=== PATIENT | male | born 1955 | race Caucasian/White ===

== ENCOUNTER 2023-07-21 14:09 | Emergency (ER) | payer MEDICARE, OTHER, SELFPAY ==
[2023-07-21 14:16] VITALS: BP 158/79
[2023-07-21 14:31] VITALS: BMI 35.2
--- NOTE | 2023-07-21 15:05 | ED.CVA ---
History of Present Illness
General
Chief Complaint: CVA/TIA Symptoms
Source: patient
Time Seen by Provider: 07/21/23 14:33
Onset of Stroke Symptoms
Onset of symptoms known: Yes
Date of onset of symptoms: 07/20/23
Time pt last seen normal is known: No
Travel History
Have you had any contact with someone who has COVID-19?: No
Do you have any symptoms of coronavirus? Fever > 100 degrees, chills, cough, shortness of breath, sore throat, loss of taste or smell, muscle aches, or headache?: No
History of Present Illness
History of Present Illness:
67-year-old male with past medical history of hyperlipidemia, previous Luque's palsy presenting to the emergency department for evaluation after he noticed yesterday morning he had pain in the right auricular area and loss of taste, this morning woke
up and had a right-sided facial droop and felt as if he could not fully close his right eye. Patient states felt similar to previous episode of Luque's palsy, contacted his primary care physician but was directed to the emergency department for
further evaluation. Patient states the preauricular pain is improved although still somewhat present. He denies any headaches, visual disturbances, focal weakness or numbness, chest pain, shortness of breath or any other concerns.
Past History
Past History
ED Past Medical History: Hypercholesterolemia
ED Past Surgical History: Orthopedic
Social History
Tobacco: Former smoker
Alcohol: None
Drug: None
Personal:
Living: with family
Review of Systems
Review of Systems
All Other Systems: ROS reviewed and negative except as documented in HPI and ROS
Phy Exam
Physical Exam
Physical Exam:
GENERAL: Alert , in no apparent distress
EYE: pupils equal and reactive, 3 mm bilateral, EOMI, no entrapment
NECK: Supple
ENT: o/p clr, mmm.
CARDIAC: Regular rate and rhythm, systolic murmur at the right second intercostal space.
LUNGS: Clear breath sounds bilaterally, no acute respiratory distress, no wheezes/rales/rhonchi
NEUROLOGICAL: Alert and oriented, right-sided facial droop noted, inability to raise the right eyebrow or close right eye fully, no dysarthria or dysmetria, no ataxia, moves all extremities, no sensory deficits
SKIN: Warm and dry, skin intact.
MUSCULOSKELETAL: well perfused.
PSYCH: Normal and appropriate interaction.
Scores
NIH Stroke Score
Level of Consciousness: 0 - Alert
LOC Questions: 0-Answers both correctly
LOC Commands: 0-Performs both correctly
Best Horizontal Gaze: 0-Normal
Visual Martinez: 0=Normal, no visual loss
Facial Palsy: 2=Partial paralysis
Motor - Right Arm: 0=No drift 10 seconds
Motor - Left Arm: 0=No drift 10 seconds
Motor - Right Le-No drift 5 seconds
Motor - Left Le-No drift 5 seconds
Limb Ataxia: 0-Absent
Sensation: 0-Normal
Best Language: 0-No aphasia
Dysarthria: 0-Normal
Extinction and Inattention: 0-No abnormality
Total Score:: 2
Heart Failure Risk
Heart Failure Risk Score: Not Applicable
Heart Score for Chest Pain Patients
STEMI patient?: Not applicable
Withdrawal Assessment of Alcohol
Withdrawal Assessment Completed?: Not applicable
Course
Orders/Labs/Results
Orders:
Orders
07/21/23 14:43
CT Head W/o Iv Contrast Urgent
Comment:
Reason For Exam: right sided facial droop, suspected bells palsy
07/21/23 16:24
Electrocardiogram (*1) Urgent
Reason for Study: TIA/Stroke
EKG- Treatment ONCE
07/21/23 16:56
Complete Blood Count/With Diff Urgent
Comprehensive Metabolic Panel Urgent
Abnormal Lab Results
07/21/23
16:56
MCH 32.2 H pg
(27.0-31.0)
MPV 11.1 H fL
(7.4-10.4)
Absolute Monos (auto) 0.7 H 10^3/uL
(0.1-0.6)
Lymphocytes % 17.7 L %
(20.5-51.1)
AST 67 H U/L
(17-59)
ALT 79 H U/L
(0-50)
Total Protein 8.4 H g/dl
(6.3-8.2)
07/21/23 16:56
07/21/23 16:56
Vital Signs
Initial and Last Documented VS:
Initial Vital Signs
Temp Pulse Resp BP Pulse Ox
98.1 F 76 18 158/79 96
07/21/23 14:16 07/21/23 14:16 07/21/23 14:16 07/21/23 14:16 07/21/23 14:16
Last Documented Vital Signs
Temp Pulse Resp BP Pulse Ox
98.1 F 76 18 159/72 96
07/21/23 14:16 07/21/23 14:16 07/21/23 14:16 07/21/23 17:28 07/21/23 14:16
Managing Director Atlas consulted with Physician
Managing Director Atlas consulted with physician?: Yes
Name of Physician Consulted: Gwyn
MDM/Problems Addressed
Differential Diagnosis Includes:
Luque's palsy, less concern for CVA, less concern for intracranial bleeding
MDM/Problems Addressed:
67-year-old male presenting emergency department at request of primary care physician for evaluation of right-sided deficits that seem to be most consistent with a Luque's palsy. Patient with history of Luque's palsy in the past. No rashes or
symptoms consistent with Lyme's as cause of Luque's palsy. I am ordering a head CT as the upper facial symptoms seem to be a little bit less noticeable than the facial droop however I am still less suspicious for an acute CVA. Anticipate starting
patient on prednisone and outpatient follow-up.
*Radiology
Radiology exam reviewed: radiology read reviewed
*Pulse Oximetry
Patient hypoxic: no
*EKG
Interpreted by ED Provider?: Yes
Comparison EKG: no changes
Heart Rate: 63
Rate: normal
Rhythm: sinus
[place]: normal axis
Ischemia: no ischemia
*Critical Care Note
Total Time (30-74mins, 75-104mins- exclusive of procedures): Not Applicable
Patient Management
Discussion with other providers: PCP
Escalation/DeEscalation of care consider admission/obs:
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 I discussed these findings with patient and who are unaware of any previous
history of CVA/TIA or any intracranial complications. Patient notes he is compliant with his antihypertensive medication, is not on any antiplatelet medication and developed neuropathy and myalgia from when he was on a statin so is currently not
taking any medications for cholesterol. I contacted the patient's primary care physician and made them aware of these findings and that we would be adding on some lab work as well as an EKG but that patient would need continued outpatient
management with a likely MRI and carotid ultrasound as well as medications adjustments as needed. Primary care physician will reach out to the patient and help schedule follow-up visits. In the meantime I added on a CBC, CMP and EKG. I still
anticipate discharge home.
Patient's labs largely unremarkable. There is a mild transaminitis. Possibly related to his previous statin use. At this time no indication for further emergent workup. Patient is otherwise stable for discharge home and outpatient management.
Aware of return precautions. Patient was provided with a printout copy of his CT scan report.
ED Attending Note
-
Portions of this chart may have been created with voice recognition software.� Occasional wrong word or��sound alike� substitutions may have occurred due to the inherent limitations of voice recognition software.
Discharge Plan
Departure
Patient Disposition: Home (Routine Discharge)
Date of Disposition: 07/21/23
Time of Disposition: 17:20
Patient with high blood pressure during this ER visit?: Yes
Discharge Problem:
Luque's palsy
Instructions: Luque's Palsy (DC)
Prescriptions:
New
prednisone 20 mg tablet
60 mg PO DAILY 7 Days Qty: 21 0RF
aspirin 81 mg tablet,delayed release (DR/EC)
81 mg PO DAILY Qty: 30 0RF
famotidine [Pepcid] 20 mg tablet
20 mg PO DAILY Qty: 30 0RF
No Action
ascorbic acid (vitamin C) [Vitamin C] 1,000 mg Tablet
1,000 mg PO DAILY
fexofenadine [Milvia] 180 mg Tablet
180 mg PO HS
losartan 25 mg Tablet
25 mg PO HS
lysine [L-Lysine] 500 mg Tablet
500 mg PO DAILY
saw palmetto 320 mg Capsule
320 mg PO DAILY
Visbiome 112.5 billion cell Capsule
1 cap PO DAILY
cholecalciferol (vitamin D3) 50 mcg (2,000 unit) Tablet
50 mcg PO DAILY
vitamin E (dl, acetate) 180 mg (400 unit) Capsule
180 mg PO DAILY
IBgard 90 mg Capsule,Delayed,Extend.Release
180 mg PO DAILY
cyanocobalamin (vitamin B-12) 2,500 mcg Tablet
2,500 mcg PO DAILY
Citracal
650 mg PO DAILY
CoQ-10
300 mg PO DAILY
Glucosamine Chondroitin
1 tab PO DAILY
Patient Comments:
07/21/2023, 1500 mg Glusocamine - 200 mg Chondroitin.
Gluten
1 tab PO DAILY
[place]-3 Krill Oil
750 mg PO DAILY
Referrals:
Harvey Vaughn MD [Active] - (Neurology - Call for appointment)
Suzanna Velazquez PA-C [Family Provider] -
Interventions
Interventions:
*Risk Screen - Suicide Last Done: 07/21/23 14:31
*General Assessment Last Done: 07/21/23 14:31
*Neglect/Abuse Screening Last Done: 07/21/23 14:31
*Nursing Disposition Last Done: 07/21/23 17:28
ED- Pulmonary Assessment Last Done: 07/21/23 14:31
ED- Neurological Assessment Last Done: 07/21/23 14:31
ED- Cardiac Assessment Last Done: 07/21/23 14:31
[2023-07-21 17:11] LABS: % Basophils 0.4 % (0-2); % Eosinophils 0.6 % (0-6); % Immature Granulocytes 0.3 % (0-0.5); % Lymphocytes 17.7 % (20.5-51.1); % Monocytes 8.4 % (1.7-9.3); % Neutrophils 72.6 % (42.2-75.2); Absolute Eosinophils 0.1 10^3/uL (0-0.7); Absolute Lymphocytes 1.4 10^3/uL (1.2-3.4); Absolute Monocytes 0.7 10^3/uL (0.1-0.6); Absolute Neutrophils 5.7 10^3/uL (1.4-6.5); Hematocrit 46.5 % (39.0-52.0); Hemoglobin 16.5 g/dL (13.0-18.0); Mean Corp Hgb Conc. 35.5 g/dL (33.0-37.0); Mean Corpuscular Hgb 32.2 pg (27.0-31.0); Mean Corpuscular Volume 90.8 fL (80.0-94.0); Mean Platelet Volume 11.1 fL (7.4-10.4); Nucleated Red Blood Cells % 0 % (-); Platelet Count 139 10^3/uL (130-400); Red Blood Cell Count 5.12 10^6/uL (4.70-6.10); Red Cell Dist. Width 12.3 % (11.5-14.5); White Blood Cell Count 7.9 10^3/uL (4.8-10.8)
[2023-07-21 17:19] LABS: ALT (SGPT) 79 U/L (0-50); AST (SGOT) 67 U/L (17-59); Albumin 4.6 g/dl (3.5-5.0); Alkaline Phosphatase 108 U/L (38-126); Blood Urea Nitrogen 14 mg/dl (9-20); Calcium 9.6 mg/dl (8.4-10.2); Carbon Dioxide 23 mmol/L (22-30); Chloride 105 mmol/L (98-107); Estimated Creatinine Clearance 96 ml/min; Glucose 94 mg/dl (70-99); Potassium 4.5 mmol/L (3.5-5.1); Sodium 135 mmol/L (135-145); Total Bilirubin 0.8 mg/dl (0.2-1.3); Total Protein 8.4 g/dl (6.3-8.2); eGFR > 60.00
[2023-07-21 17:28] VITALS: BP 159/72
== END 2023-07-21 17:31 | disposition home or self-care (01) ==
LOC: EMR 14:09
PROVIDERS: Physician Assistant Medical; EMERGENCY PHYSICIAN Student in an Organized Health Care Education/Training Program; FAMILY PHYSICIAN Physician Assistant Medical
DX: G51.0 Bell's palsy (principal); R03.0 Elevated blood-pressure reading, without diagnosis of hypertension; E78.00 Pure hypercholesterolemia, unspecified; Z87.891 Personal history of nicotine dependence; Z79.82 Long term (current) use of aspirin; Z88.1 Allergy status to other antibiotic agents
CPT/HCPCS: 99284; 70450; 80053; 85025; 93005

== ENCOUNTER → 2023-09-11 08:37 | Outpatient (REF) | payer MEDICARE, OTHER, SELFPAY | LOC: RAD 08:37 | PROVIDERS: ATTENDING PHYSICIAN Internal Medicine Cardiovascular Disease; FAMILY PHYSICIAN Physician Assistant Medical | DX: I63.9 Cerebral infarction, unspecified (principal); I63.89 Other cerebral infarction; I10 Essential (primary) hypertension; Z86.73 Personal history of transient ischemic attack (TIA), and cerebral infarction without residual deficits; I65.29 Occlusion and stenosis of unspecified carotid artery | CPT/HCPCS: 93880 ==

== ENCOUNTER → 2023-09-26 07:09 | Outpatient (REF) | payer MEDICARE, OTHER, SELFPAY ==
--- NOTE | 2023-09-26 08:38 | PTCARENOTE ---
#22 dagoberto placed left hand for bubble study. INT removed after study completed. dsg applied and pressure held, no bleeding noted.
[2023-09-26 10:15] LABS: ALT (SGPT) 54 U/L (0-50); AST (SGOT) 57 U/L (17-59); Albumin 4.7 g/dl (3.5-5.0); Alkaline Phosphatase 80 U/L (38-126); Direct Bilirubin 0.2 mg/dl (0.0-0.4); Total Bilirubin 0.8 mg/dl (0.2-1.3); Total Protein 7.9 g/dl (6.3-8.2)
[2023-09-26 10:43] LABS: TSH 3.04 uIU/ml (0.47-4.68)
[2023-09-29 16:17] LABS: Lyme Antibody Screen, EIA Negative (Negative)
== END ==
LOC: RCS 07:09
PROVIDERS: ATTENDING PHYSICIAN Internal Medicine Cardiovascular Disease; FAMILY PHYSICIAN Physician Assistant Medical
DX: I10 Essential (primary) hypertension (principal); Z86.73 Personal history of transient ischemic attack (TIA), and cerebral infarction without residual deficits; I63.9 Cerebral infarction, unspecified; R25.1 Tremor, unspecified; G51.0 Bell's palsy
CPT/HCPCS: 36415; 80076; 82565; 84443; 86618; 93306

== ENCOUNTER → 2023-10-06 13:11 | Outpatient (REF) | payer MEDICARE, OTHER, SELFPAY | LOC: RAD 13:11 | PROVIDERS: ATTENDING PHYSICIAN Psychiatry & Neurology Neurology; FAMILY PHYSICIAN Physician Assistant Medical; OTHER PHYSICIAN Internal Medicine Cardiovascular Disease; OTHER PHYSICIAN Surgery Vascular Surgery | DX: I63.9 Cerebral infarction, unspecified (principal) | CPT/HCPCS: 70496; 70498; Q9967 ==

== ENCOUNTER 2023-10-28 05:52 | Inpatient (IN) | payer MEDICARE, OTHER, SELFPAY ==
[2023-10-23 09:23] VITALS: BMI 34.2
[2023-10-23 10:10] LABS: % Basophils 0.3 % (0-2); % Eosinophils 1.9 % (0-6); % Immature Granulocytes 0.3 % (0-0.5); % Lymphocytes 19.4 % (20.5-51.1); % Monocytes 7.3 % (1.7-9.3); % Neutrophils 70.8 % (42.2-75.2); Absolute Eosinophils 0.1 10^3/uL (0-0.7); Absolute Lymphocytes 1.1 10^3/uL (1.2-3.4); Absolute Monocytes 0.4 10^3/uL (0.1-0.6); Absolute Neutrophils 4.1 10^3/uL (1.4-6.5); Hematocrit 43.3 % (39.0-52.0); Hemoglobin 15.2 g/dL (13.0-18.0); Mean Corp Hgb Conc. 35.1 g/dL (33.0-37.0); Mean Corpuscular Hgb 32.1 pg (27.0-31.0); Mean Corpuscular Volume 91.4 fL (80.0-94.0); Mean Platelet Volume 10.8 fL (7.4-10.4); Nucleated Red Blood Cells % 0 % (-); Platelet Count 152 10^3/uL (130-400); Red Blood Cell Count 4.74 10^6/uL (4.70-6.10); Red Cell Dist. Width 12.6 % (11.5-14.5); White Blood Cell Count 5.7 10^3/uL (4.8-10.8)
[2023-10-23 10:25] LABS: INR 1.09; PT 14.2 Sec (11.4-14.6)
[2023-10-23 10:26] LABS: APTT 32.7 Sec (23.4-35.0)
[2023-10-23 10:34] LABS: Blood Urea Nitrogen 20 mg/dl (9-20); Carbon Dioxide 22 mmol/L (22-30); Chloride 107 mmol/L (98-107); Estimated Creatinine Clearance 75 ml/min; Glucose 118 mg/dl (70-99); Potassium 4.6 mmol/L (3.5-5.1); Sodium 138 mmol/L (135-145); eGFR > 60.00
[2023-10-28] VITALS (22 sets, daily range): BP systolic 99–157; BP diastolic 48–80; BMI 34.7
[2023-10-28] MEDS: NSS 500 IV ×2 (07:00→21:42)
[2023-10-28] MEDS: VANCOCIN 300 ML IV (07:11)
[2023-10-28] MEDS: VANCOCIN 300 MG IV (07:11)
[2023-10-28] MEDS: PERIDEX 0.12% ORAL RINSE 15 ML PO ×2 (07:17→07:30)
[2023-10-28] MEDS: BACTROBAN NASAL 1 GRAM NASAL (07:31)
--- NOTE | 2023-10-28 07:33 | W.SUR.PREOP ---
Pre-Operative Surgical Note
-
I have examined this patient prior to the performance of the scheduled procedure.
The patient's condition is unchanged from the time of the current History and
Physical and the patient is able to undergo the scheduled procedure.
[2023-10-28 08:51] LABS: ACT-LR - POC 311 Seconds (116-155)
--- NOTE | 2023-10-28 09:46 | W.IMMPOSTOP ---
Surgical Immed Post Op Note
-
Primary Surgeon: Dr. Lakhwinder Hedrick III, MD
Assisting Surgeon: Dr. Srinivas Jonas MD, PhD (PGY-1)
Pre-op Diagnosis: Right carotid stenosis
Post-op Diagnosis: Rigth carotid stenosis
Procedure Performed: Right transcarotid artery revascularization
Anesthesia Type: General
Specimen / Cultures: None
Estimated Blood Loss: 40cc
Complications: None
Operative Findings: Patient was positioned in the supine position, the right neck and bilateral groins were prepped and draped. Ultrasound was used to identify the common carotid in the triangle made by the two heads of the sternocleidomastoid.
Skin incision was made and sharp dissection was performed to expose the common carotid. Proximal control was obtained with vessel loops around the common carotid. At this point, ultrasound was used to identify the left common femoral vein and this
was accessed with a micropuncture kit with a sheath. A 5-0 prolene suture was then used to create a purse string in the right common carotid. A micropuncture kit was used to gain vascular access into the right common carotid and the TCAR delivery
sheath was placed into the vessel and secured with silk ties. After giving heparin and confirming the retrograde flow system, angiography was performed to confirm the delivery of the carotid stent. The right common carotid was dilated to a pressure
of 8 and the stent was delivered across the lesion. After the delivery of the stent, positioned was confirmed by angiography. The reverse flow was stopped and the sheaths in the groin and neck were removed. The purse string was used to secure the
right common carotid arteriotomy. Irrigation was performed and hemostasis was achieved in the wound bed. The soft tissues and skin were closed with suture layers and skin glue on the surface. At the conclusion of the case, the patient was neuro
intact, following commands, with no motor deficits in any of his extremities.
--- NOTE | 2023-10-28 09:53 | OR.RPT ---
Operative Report
Operative Report
Date of Operation: 10/28/2023
Pre Op Diagnosis: Asymptomatic high-grade right carotid stenosis
Post Op Diagnosis: Asymptomatic high-grade right carotid stenosis
Procedure:
1.) RIGHT trans-carotid artery revascularization with flow reversal embolic protection
9 mm x 40 mm ENROUTE STENT
5 mm x 30 mm pre- balloon angioplasty
2.) Ultrasound-guided percutaneous access to the left common femoral vein
Surgeon: Lakhwinder Hedrick III, MD
Therapeutic Recreation Leader: Srinivas Jonas MD PhD, PGY1
Anesthesia: General
Fluoroscopy:
7 min
163 mGy
23.61 Gy.cm2 DAP
Complications: None
Estimated Blood Loss: Minimal
History and Indications for Procedure: 68-year-old male
Procedure in Detail: Herbert Storm was correctly identified and placed supine on the operating table. After adequate induction of anesthesia the right neck was positioned appropriately. Using ultrasound guidance I identified the right common
carotid artery at the base of the neck in between the heads of the sternocleidomastoid muscle. The right neck was then prepped and draped in usual sterile fashion. Similarly the bilateral groins were prepped and draped in the usual sterile fashion.
Preoperative antibiotics were administered. A timeout procedure was performed with the nursing and anesthesia staff confirming the patient's identity as well as the nature and laterality of the procedure.
A small vertical incision was made at the base of the right neck and between the 2 heads of the sternocleidomastoid muscle. Using electrocautery and sharp dissection the common carotid artery was exposed. The vagus nerve was identified and
protected. The proximal right common carotid artery was encircled with a vessel loop. A 5-0 Prolene pursestring suture was then placed around the proposed puncture site in the common carotid artery. Systemic heparin was administered at this point.
Under ultrasound guidance I accessed the left common femoral vein with a micropuncture needle. I then advanced the micro-dilator and sheath over the microwire. A [place] wire was then easily advanced through the micro-sheath and the 8 Malian sheath
was inserted. The side port was aspirated and then flushed with heparinized saline solution.
The right common carotid artery was then accessed with the marked micropuncture needle through the pursestring site. The microwire was then easily advanced to the clear neri on the wire. The micro-sheath was then easily advanced over the wire to the
3 cm neri. The inner dilator and wire were removed. An initial carotid arteriogram was then performed which demonstrated a high-grade stenosis of the proximal right internal carotid artery. The external carotid artery was widely patent. The common
carotid artery was patent. The location of the carotid bifurcation was marked on the screen. The external carotid artery was selected with the microwire and the micro dilator/sheath advanced to the final black neri. The J-wire was then carefully
inserted through the microsheath to the external carotid artery. The 8 Malian arterial sheath was then inserted carefully under radiographic visualization keeping the J-wire tip in the external carotid artery. The sheath was then secured in place at
the skin level using 2 separate silk sutures. The ENROUTE SOFTWARE CONFIGURATION ANALYST flow reversal system was connected, switched to the high setting and the patient was placed on passive flow reversal. Flow reversal was confirmed with the heparin saline syringe test on
the groin sheath.
At this point an additional arteriogram was performed via the 8 Fr carotid sheath in a more lateral projection to splay the carotid bifurcation. The screen was marked and a roadmap was set. The right common carotid artery vessel loop was secured at
this point and the patient was placed on high flow flow reversal. Under roadmap guidance the right internal carotid artery lesion was crossed with a 0.014 wire. The tip of the wire was placed in the distal internal carotid artery. A 5 mm x 30 mm
angioplasty balloon was then positioned across the high-grade stenosis in the right internal carotid artery. Predilatation angioplasty was performed with this balloon. The balloon was removed over the wire. A 9 mm x 40 mm ENROUTE stent was then
positioned in the desired location under roadmap guidance and deployed successfully. The delivery system was removed.
Completion arteriogram was performed after several minutes with temporary cessation of flow reversal. This demonstrated an excellent technical result. The carotid stent was widely patent and in the desired location. There was brisk flow through the
stent and into the intracranial circulation. No significant residual stenosis was identified. No filling defects or other abnormalities were noted in the common carotid artery.
The right common carotid artery vessel loop was then released. The ENROUTE SOFTWARE CONFIGURATION ANALYST flow reversal system was disconnected from both the common carotid artery and femoral venous sheaths. The common carotid artery sheath was then removed and the 5-0
Prolene pursestring secured. Protamine was administered. The suture line was closely inspected and hemostasis was achieved. Hemostasis was achieved in the wound bed. The wound was irrigated with saline solution. There was an excellent pulse in the
common carotid artery proximal and distal to the sheath entry site repair. The wound was then closed in layers and skin glue was applied.
The left femoral venous sheath was pulled and direct pressure was held over the puncture site for 10 minutes. Hemostasis was achieved and a sterile dressing was applied.
The patient awoke from general anesthesia with no immediate neurologic deficits. He was taken to the recovery room in stable condition.
Attestation: I was present and responsible for the entire procedure
Signed:
Lakhwinder Hedrick III, MD
[facility]
[phone] (obge)
[2023-10-28 10:14] LABS: APTT 30.9 Sec (23.4-35.0)
[2023-10-28 10:15] LABS: Hematocrit 40.9 % (39.0-52.0); Mean Corp Hgb Conc. 34.2 g/dL (33.0-37.0); Mean Corpuscular Hgb 31.9 pg (27.0-31.0); Mean Corpuscular Volume 93.2 fL (80.0-94.0); Mean Platelet Volume 10.9 fL (7.4-10.4); Platelet Count 134 10^3/uL (130-400); Red Blood Cell Count 4.39 10^6/uL (4.70-6.10); Red Cell Dist. Width 12.4 % (11.5-14.5)
[2023-10-28 10:26] LABS: Blood Urea Nitrogen 14 mg/dl (9-20); Calcium 8.4 mg/dl (8.4-10.2); Carbon Dioxide 22 mmol/L (22-30); Chloride 106 mmol/L (98-107); Estimated Creatinine Clearance 83 ml/min; Glucose 151 mg/dl (70-99); Potassium 4.5 mmol/L (3.5-5.1); Sodium 134 mmol/L (135-145); eGFR > 60.00
[2023-10-28 11:16] LABS: INR 1.14; PT 14.5 Sec (11.4-14.6)
[2023-10-28] MEDS: TYLENOL 650 MG PO ×2 (11:28→21:47)
[2023-10-28] MEDS: NSS 1000 IV ×2 (11:28→21:59)
[2023-10-28] MEDS: PLAVIX 75 MG PO (11:28)
[2023-10-28] MEDS: ASPIR LOW (ENTERIC COATED) 81 MG PO (11:28)
[2023-10-28 12:03] LABS: Magnesium 1.9 mg/dl (1.6-2.3)
--- NOTE | 2023-10-28 12:33 | CON.INTV ---
Consultation
Consultation Request
Date/Time Consultation Requested: 10/28/2023
Date/Time Consultation Performed: 10/28/2023
Requesting Provider: Dr. Hedrick
Performing Provider: Dr. Sammy Meyers
Reason for Consultation: Postoperative ICU care-status post TCAR
Medical History
-
History of Present Illness:
68-year-old male with past medical history significant for hypertension, hyperlipidemia, BPH, nephrolithiasis, prior Luque's palsy, bronchiectasis who has history of high-grade right carotid stenosis, he was deemed candidate for revascularization.
Admitted to the hospital 10/28/2023. Underwent TCAR without complications. Currently in the critical care unit.
Denies any headache, blurry vision, nausea or vomiting.
Denies any weakness.
Denies stridor.
Pain is controlled
Past Medical History
Past Medical History: Other (See assessment and plan section)
Social History
Tobacco: Former Smoker (1 pack/day for 20 years quit in 1993)
Alcohol: None
Drug: None
Living: With Family
Family History
Family History: Reviewed & Not Pertinent
Allergies / Home Medications
Allergies
Allergy/AdvReac Type Severity Reaction Status Date / Time
Penicillins Allergy Unknown Pharmacy Verified 10/28/23 06:29
to Review
gabapentin Allergy Unknown Verified 10/28/23 06:29
[place]-IMN-NiC Reductase Allergy Unknown Verified 10/28/23 06:29
Inhibitor
Home Medications
�Medication �Instructions �Recorded �Confirmed �Last Taken �Type
Citracal 650 mg PO DAILY 07/21/23 10/28/23 10/27/23 08:00 History
CoQ-10 300 mg PO DAILY 07/21/23 10/28/23 10/27/23 08:00 History
Lactobac no.2-Bifidobac no.1-S. 1 cap PO DAILY 07/21/23 10/28/23 10/27/23 08:00 History
thermo 112.5 billion cell capsule
(Visbiome)
[place]-3 Krill Oil 750 mg PO DAILY 07/21/23 10/28/23 10/27/23 08:00 History
ascorbic acid (vitamin C) 1,000 mg 1,000 mg PO DAILY 07/21/23 10/28/23 10/27/23 08:00 History
tablet (Vitamin C)
aspirin 81 mg tablet,delayed 81 mg PO DAILY #30 tabs 07/21/23 10/28/23 10/27/23 20:00 Rx
release
cholecalciferol (vitamin D3) 50 50 mcg PO DAILY 07/21/23 10/28/23 10/27/23 08:00 History
mcg (2,000 unit) tablet
cyanocobalamin (vitamin B-12) 2,500 mcg PO DAILY 07/21/23 10/28/23 10/27/23 08:00 History
2,500 mcg tablet
fexofenadine 180 mg tablet 180 mg PO HS 07/21/23 10/28/23 10/27/23 20:00 History
losartan 25 mg tablet 50 mg PO HS 07/21/23 10/28/23 10/27/23 20:00 History
lysine 500 mg tablet (L-Lysine) 500 mg PO DAILY 07/21/23 10/28/23 10/27/23 08:00 History
peppermint oil 90 mg 180 mg PO DAILY 07/21/23 10/28/23 10/27/23 08:00 History
capsule,delayed,extended release
(IBgard)
vitamin E (dl, acetate) 180 mg 180 mg PO DAILY 07/21/23 10/28/23 10/27/23 08:00 History
(400 unit) capsule
alirocumab 75 mg/mL subcutaneous 75 mg SC Q2W 10/20/23 10/28/23 10/27/23 20:00 History
pen injector (Praluent Pen)
fenofibrate 145 mg PO QPM 10/20/23 10/28/23 10/27/23 20:00 History
lutein 75 mg PO DAILY 10/20/23 10/28/2310/26/24 08:00 History
metoprolol succinate 25 mg 12.5 mg PO QPM 10/20/23 10/28/23 10/27/23 20:00 History
tablet,extended release 24 hr
saw palmetto 160 mg capsule 640 mg PO DAILY 10/20/23 10/28/23 10/27/23 08:00 History
clopidogrel 75 mg tablet (Plavix) 75 mg PO QPM 10/28/23 10/28/23 10/27/23 20:00 History
fluticasone propionate 50 2 spray intranasal DAILY 10/28/23 10/28/23 10/27/23 08:00 History
mcg/actuation nasal
spray,suspension
Review of Systems
-
History Source: Patient
All other systems: Negative unless noted
Vitals / Labs / Diagnostic Testing
Vital Signs
Temp Pulse Resp BP Pulse Ox
97.6 F 58 14 99/58 94
10/28/23 12:11 10/28/23 11:45 10/28/23 11:45 10/28/23 11:30 10/28/23 11:56
Lab Data
10/28/23 09:56
10/28/23 09:56
Laboratory Results
10/28/23
09:56
PT 14.5
INR 1.14
APTT 30.9
Diagnostic Testing:
Physical Exam
-
HEENT: Normocephalic and Other ( incision intact. No hematoma. No stridor on exam)
Cardiovascular: S1/S2
Respiratory: Clear and Non-Labored Respirations
GI: Soft
Neurology: Awake, Alert, Oriented and No Motor Deficits
Skin: Warm
General: Respiratory Distress (n)
Assessment
-
Status post RIGHT trans-carotid artery revascularization with flow reversal embolic protection 10/28/2023-Dr. Hedrick
Conditions present prior admission:
Neuropathy
Plantar fasciitis
BPH
Hypertension
Hyperlipidemia
IBS
Kidney stones
Luque's palsy
Bronchiectasis
Assessment and plan:
Doing well postoperative day 0
Postoperative surgical intensive care unit monitoring
Supplemental oxygen as needed
Incentive spirometry
Aspiration precautions
Chest x-ray 10/28/2023: Low lung volumes. No pneumothorax.
Incision without hematoma
Nonobstructive exam
Continue analgesia, hydromorphone as needed-monitor respiratory status closely.
Neuro and vascular checks per protocol
Vascular surgery following-correspondence and operative notes reviewed
Monitor blood pressure
Cardene drip if needed
Arterial line in place
Continue antiplatelets
Follow hemoglobin
Follow blood sugars
Insulin supplementation as needed
DVT prophylaxis-heparin subcu
Early mobilization
ICU level of care per protocol.
--- NOTE | 2023-10-28 13:08 | PTCARENOTE ---
pt received form pacu. pt aaox3. states 2/ pain in neck. tylenol given as ordered. nsr/sb seen on monitor. 4lnc. breath sounds clear. right neck surgical site c/d/i. left groin puncture site c/d/i. dp pulses present. right a line line
place. ivf running as ordered. pt face symmetric and moves all ext full strength. pt at bedside. now eating lunch.
[2023-10-28] MEDS: NEO-SYNEPHRINE 250 IV (15:28)
--- NOTE | 2023-10-28 15:32 | PTCARENOTE ---
pt urinating small amounts. bladder scanned for 550. encouraged to void. liza gtt started as ordered for map of 65.
[2023-10-28] MEDS: TRICOR 145 MG PO (18:26)
[2023-10-28] MEDS: HEPARIN 5000 UNITS SC (19:10)
--- NOTE | 2023-10-28 20:00 | PTCARENOTE ---
Rec'd pt resting in bed, denies pain , R neck incis intact w/ surgical glue, ice pack applied per order,q1hr neuro checks, amairani at 3mm,brisk, REINALDO , oriented x3, SR w/ 1' AV block, R rad ole w/ good wave form, flushes well, accurate to cuff, to
maintain MAP 70-90, liza gtt at 20 sarah, see flow sheet for titrations, left groin site intact- dsg dry, + pulses, no edema, skin warm/dry, O2 4 liters nc, sat 95, lungs clear, + bowel sounds, no bm, abd obese, soft, no n/v, bentley diet, bladder scanned
for 675 ml, str cathed for 650 ml becca urine under mammography technician
[2023-10-28 20:46] LABS: ALT (SGPT) 31 U/L (0-50); AST (SGOT) 40 U/L (17-59); Alkaline Phosphatase 73 U/L (38-126); Phosphorus 3.4 mg/dl (2.5-4.5); Total Bilirubin 0.8 mg/dl (0.2-1.3); Total Protein 6.7 g/dl (6.3-8.2)
--- NOTE | 2023-10-28 21:54 | PTCARENOTE ---
tylenol 650mg po given for R neck incis pain
--- NOTE | 2023-10-28 23:54 | PTCARENOTE ---
sys reviewed, o2 decr to 2 liters nc, neuro intact
[2023-10-29] VITALS (9 sets, daily range): BP systolic 111–164; BP diastolic 55–67; BMI 35.3
--- NOTE | 2023-10-29 02:00 | PTCARENOTE ---
bladder scanned for 650ml, str cath for 675 ml
[2023-10-29 04:00] LABS: Hematocrit 40.3 % (39.0-52.0); Hemoglobin 13.6 g/dL (13.0-18.0); Mean Corp Hgb Conc. 33.7 g/dL (33.0-37.0); Mean Corpuscular Hgb 32.2 pg (27.0-31.0); Mean Corpuscular Volume 95.3 fL (80.0-94.0); Platelet Count 176 10^3/uL (130-400); Red Blood Cell Count 4.23 10^6/uL (4.70-6.10); Red Cell Dist. Width 12.5 % (11.5-14.5)
--- NOTE | 2023-10-29 04:00 | PTCARENOTE ---
sys reviewed, changes noted, neuro intact
[2023-10-29 04:12] LABS: INR 1.19; PT 14.9 Sec (11.4-14.6)
[2023-10-29 04:36] LABS: Blood Urea Nitrogen 15 mg/dl (9-20); Calcium 8.9 mg/dl (8.4-10.2); Carbon Dioxide 24 mmol/L (22-30); Chloride 109 mmol/L (98-107); Estimated Creatinine Clearance 83 ml/min; Glucose 132 mg/dl (70-99); Potassium 4.2 mmol/L (3.5-5.1); Sodium 137 mmol/L (135-145); eGFR > 60.00
--- NOTE | 2023-10-29 06:00 | PTCARENOTE ---
liza off at 0600
--- NOTE | 2023-10-29 07:39 | W.PN.VS ---
Addendum entered and electronically signed by Vasyl Canada MD 10/29/23 07:55:
Seen and examined with CAR Reynoso. Agree with findings as noted below. Patient without any complaints. Right neck incision clean dry and intact, no hematoma. Neurologically no focal deficits. Moves all extremities well. Left groin puncture site
flat, no hematoma. Plan/as discussed and noted below.
Original Note:
Today's Communication / Plan
-
Seen and assessed with Dr. Canada
Assessment/Plan
-
POD 1 RIGHT trans-carotid artery revascularization with flow reversal embolic protection
Plan:
-Out of bed/ambulate
-DC A-line
-DC IV fluids
-Diet
-Likely DC later today
Subjective Data
-
Date of Service: October 29, 2023
Patient seen at bedside this a.m. with Dr. Canada. Patient offers no complaints. No events overnight
Objective Data
-
Vital Signs
Temp Pulse Resp BP Pulse Ox
97.9 F 76 22 164/67 94
10/29/23 07:37 10/29/23 06:00 10/29/23 06:00 10/29/23 06:00 10/29/23 06:00
Intake and Output
10/28/23 10/29/23 10/30/23
06:59 06:59 06:59
Intake Total 1896 / 1896
Output Total 2225 / 2525 300 / 300
Balance -329 / -629 -300 / -300
Intake:
Oral fluids 200 / 200
IV fluids (Total) 1696 / 1696
Nss 1,000 ml @ 80 mls/hr IV . 1600 / 1600
[id number] MADDISON Rx#:[id number]
liza 96 / 96
Output:
Urine, Voided 925 / 1225 300 / 300
Straight cath output 1300 / 1300
Lab Results
10/29/23 03:48
10/29/23 03:48
Calcium 8.9 mg/dl (8.4-10.2) 10/29/23 03:48
Phosphorus Cancelled 10/28/23 18:33
Magnesium 1.9 mg/dl (1.6-2.3) 10/28/23 09:56
Total Bilirubin Cancelled 10/28/23 18:33
AST Cancelled 10/28/23 18:33
ALT Cancelled 10/28/23 18:33
Alkaline Phosphatase Cancelled 10/28/23 18:33
Total Protein Cancelled 10/28/23 18:33
Albumin Cancelled 10/28/23 18:33
Physical Exam
-
AAOx3
no tachycardia
No tachypnea
Neck site clean dry and intact, soft
Groin site clean, dry, soft, no hematoma
Moves all extremities equally
Tongue midline
[2023-10-29] MEDS: VISBIOME 1 CAP PO (08:05)
[2023-10-29] MEDS: VITAMIN D3 (cholecalciferol) 50 MCG PO (08:05)
[2023-10-29] MEDS: OSCAL CAL 500 500 MG PO (08:05)
[2023-10-29] MEDS: ASPIR LOW (ENTERIC COATED) 81 MG PO (08:05)
[2023-10-29] MEDS: VITAMIN C 1000 MG PO (08:06)
[2023-10-29] MEDS: HEPARIN 5000 UNITS SC (08:06)
[2023-10-29] MEDS: VITAMIN B-12 2000 MCG PO (08:12)
--- NOTE | 2023-10-29 08:50 | PTCARENOTE ---
Pt received from night shift manager RN. Ox3 and appropriate. Neuro checks intact. He is very motivated to get OOB into the chair. Seen by Vascular. A line removed. NSR on tele, HR 45-60. + pulses, no edema. 96% on RA, clear breath sounds. Round AND. Pt
finding it easier to urinate while standing. L groin site intact. R neck surgical glue intact. IV sites intact. Pt using call ortega appropriately.
--- NOTE | 2023-10-29 10:23 | W.PN.INTV ---
Today's Communication / Plan
Recommendations
Continue postoperative care
Hopefully discharge later today.
Assessment
-
Status post RIGHT trans-carotid artery revascularization with flow reversal embolic protection 10/28/2023-Dr. Hedrick
Conditions present prior admission:
Neuropathy
Plantar fasciitis
BPH
Hypertension
Hyperlipidemia
IBS
Kidney stones
Luque's palsy
Bronchiectasis
Assessment and plan:
Doing well postoperative day 1
Hemodynamically stable
Asymptomatic
Pain is controlled
No stridor on exam
Denies swallowing problems.
Incision appears intact.
Neurologically intact.
Neuro and vascular checks per protocol
Vascular surgery following-correspondence and operative notes reviewed
Hopefully discharge planning later today.
Restart outpatient medications
Continue antiplatelets
Follow blood sugars
Insulin supplementation as needed
DVT prophylaxis-heparin subcu
Increase activity as tolerated.
-
Discharge planning.
-
No additional recommendations.
Sign off.
Subjective Dataa
Subjective Data
Date of Service:
Date of Service: October 29, 2023
Chief Complaint: Neck Band Operator Follow Up (Status post right carotic endarterectomy)
Subjective:
Patient denies any significant headache, nausea or vomiting.
Pain is controlled
Denies stridor
Review of Systems
General: Fever (n)
Cardiopulmonary: Dyspnea (n), Dyspnea on Exertion (n) and Chest Pain (n)
GI: Abdominal Pain (n) and Nausea (n)
Objective Data
Data Reviewed
Vital Signs / I&O / Oxygen:
Vital Signs
Temp Pulse Resp BP Pulse Ox
97.9 F 49 12 127/65 98
10/29/23 07:37 10/29/23 08:00 10/29/23 08:00 10/29/23 08:00 10/29/23 08:44
Intake and Output
10/28/23 10/29/23 10/30/23
06:59 06:59 06:59
Intake Total 1895 160 / 160
Output Total 2224 / 2524 500 / 500
Balance -329 / -549 -340 / -340
SaO2 98
Nasal Cannula flow liters per 2
minute
Physical Exam
General: Respiratory Distress (n) and Comfortable
HEENT: Normocephalic, Other (No stridor on exam) and Other (Cervical incision is intact without significant hematoma.)
Cardiovascular: S1-S2
Respiratory: Clear and Non-Labored Respirations
GI: Soft and Non Distended
Neurology: Awake and Alert
Skin: Warm
Labs/Micro/Reports
Lab Data
10/29/23 03:48
10/29/23 03:48
Laboratory Results
10/28/23 10/29/23
09:56 03:48
PT 14.5 14.9 H
INR 1.14 1.19
APTT 31.0
--- NOTE | 2023-10-29 10:42 | CM ---
CM following re: discharge planning.
Discussed in Rounds, reviewed pt's chart, met with pt and pt's spouse at bedside.
Pt is a 68 year old male, admitted with primary dx of POD 1 RIGHT trans-carotid artery revascularization with flow reversal embolic protection
Pt reports he lives with spouse in a 2SH, 2 steps to enter, has supportive daughter. 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 No DME, VN or SNF history.
Per vascular surgery pt likely will be discharged home today. Both pt and his spouse are aware, expressed their agreement and pt's spouse stated she will transport pt home. IMM reviewed, placed in chart, pt has a copy.
PCP: Suzanna Velazquez
Pharmacy: [facility]
D/C plan: home no needs. Spouse to transport.
--- NOTE | 2023-10-29 11:31 | PTCARENOTE ---
Pt reassessed. Motivated to go home. Is using urinal without difficulty. He initially had some dizziness upon standing but is now able to ambulate in room without issue. at bedside, pt is currently napping.
--- NOTE | 2023-10-29 14:31 | W.DS.TRANS ---
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
-
Discharge Instructions:
Discharge Diagnosis/Procedures Right transcarotid artery revascularization
Diet As tolerated
Activity No strenuous activity
Bathing Restrictions OK to Shower
Wound Care If you experience swelling, increased bruising
, drainage from neck site, or fever, please call
the office
Instructions:
Stand-Alone Forms: DC Instr - Vascular OR
Changes to Home Medications: No
Discharge Medications:
DC Medications w/original date entered in [employer]
Citracal 650 mg PO DAILY Supplement 07/21/23
CoQ-10 300 mg PO DAILY Supplement 07/21/23
Lactobac no.2-Bifidobac no.1-S. thermo 112.5 billion cell capsule (Visbiome) 1 cap PO DAILY Gastrointestinal Issue 07/21/23
[place]-3 Krill Oil 750 mg PO DAILY Supplement 07/21/23
ascorbic acid (vitamin C) 1,000 mg tablet (Vitamin C) 1,000 mg PO DAILY Supplement 07/21/23
aspirin 81 mg tablet,delayed release 81 mg PO DAILY #30 tabs 07/21/23
cholecalciferol (vitamin D3) 50 mcg (2,000 unit) tablet 50 mcg PO DAILY Supplement 07/21/23
cyanocobalamin (vitamin B-12) 2,500 mcg tablet 2,500 mcg PO DAILY Supplement 07/21/23
fexofenadine 180 mg tablet 180 mg PO HS Allergies 07/21/23
losartan 25 mg tablet 50 mg PO HS Blood Pressure 07/21/23
lysine 500 mg tablet (L-Lysine) 500 mg PO DAILY Supplement 07/21/23
peppermint oil 90 mg capsule,delayed,extended release (IBgard) 180 mg PO DAILY Gastrointestinal Issue 07/21/23
vitamin E (dl, acetate) 180 mg (400 unit) capsule 180 mg PO DAILY Supplement 07/21/23
alirocumab 75 mg/mL subcutaneous pen injector (Praluent Pen) 75 mg SC Q2W High Cholesterol 10/20/23
fenofibrate 145 mg PO QPM High Cholesterol 10/20/23
lutein 75 mg PO DAILY Supplement 10/20/23
metoprolol succinate 25 mg tablet,extended release 24 hr 12.5 mg PO QPM Heart Disease/Condition 10/20/23
saw palmetto 160 mg capsule 640 mg PO DAILY Supplement 10/20/23
clopidogrel 75 mg tablet (Plavix) 75 mg PO QPM Blood Clot Prevention/Tx 10/28/23
fluticasone propionate 50 mcg/actuation nasal spray,suspension 2 spray intranasal DAILY Allergies 10/28/23
Home Medication Changes
Pending Results: No
--- NOTE | 2023-10-29 15:06 | W.DCSUMMARY ---
Discharge Summary
Discharge Data
Date of Admission: 10/28/23
Date of Discharge: 10/29/23
-
Pending Results: No
Hospital Course
Attending: Lakhwinder Hedrick III, MD
Consultants: Pulmonary medicine
Allergies: penicillin, gabapentin, statins
Procedure with date: RIGHT trans-carotid artery revascularization with flow reversal embolic protection
9 mm x 40 mm ENROUTE STENT
5 mm x 30 mm pre- balloon angioplasty
2.) Ultrasound-guided percutaneous access to the left common femoral vein: On 10/28/[address] Lakhwinder Hedrick III
History of present illness: The patient is an 68-year-old male with multiple medical conditions including: carotid stenosis, neuropathy, plantar fasciitis, BPH, hypertension, hyperlipidemia, IBS, hemorrhoids, kidney stones, osteoarthritis, and
Luque's palsy. Patient presented on 10/28/2023 for scheduled procedure with Dr. Lakhwinder Hedrick III. Patient presented at baseline health with no reports of recent illness or trauma.
Hospital Course: Briefly, the patient underwent scheduled right TCAR without complications, and recovered in PACU. Following recovery phase one and two patient was transferred to intensive care unit per protocol for continued hemodynamic monitoring.
High Speed Printer Operator consulted to aid in medical management from a critical care perspective. He did require initiation of Kuldeep-Synephrine infusion in order to keep blood pressure within parameters. However, was successfully weaned off. POD #1 (10/29/2023)
Patient neurologically intact, face symmetrical, and tolerating PO diet. Surgical right lower neck site clean, dry, and intact with suture line well approximated and soft. No evidence of hematoma. Arterial line and IV fluids discontinued. Patient
able to ambulate without difficulty or incident. Patient stable for discharge to home.
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 All instructions were given to the patient in both written and verbal form and the patient expressed understanding.
Discharge Plan
-
Patient Disposition: Home (Routine Discharge)
Discharge Diagnosis/Procedures: Right transcarotid artery revascularization
Condition: Good
Diet: As tolerated
Activity: No strenuous activity
Bathing Restrictions: OK to Shower
Wound Care: If you experience swelling, increased bruising, drainage from neck site, or fever, please call the office
Activity Restrictions/Additional Instructions:
If you experience severe constant headache, weakness to an arm or leg, change in vision, trouble speaking or any stroke-like symptom, call 911 immediately
Stand Alone Forms: DC Instr - Vascular OR
Referrals:
Suzanna Velazquez PA-C [Family Provider] -
Terese Wick CRNP [Specified Professional Personl] - 11/12/23 9:45 am
Prescriptions:
Continued
ascorbic acid (vitamin C) [Vitamin C] 1,000 mg Tablet
1,000 mg PO DAILY
fexofenadine 180 mg Tablet
180 mg PO HS
losartan 25 mg Tablet
50 mg PO HS
lysine [L-Lysine] 500 mg Tablet
500 mg PO DAILY
Visbiome 112.5 billion cell Capsule
1 cap PO DAILY
cholecalciferol (vitamin D3) 50 mcg (2,000 unit) Tablet
50 mcg PO DAILY
vitamin E (dl, acetate) 180 mg (400 unit) Capsule
180 mg PO DAILY
IBgard 90 mg Capsule,Delayed,Extend.Release
180 mg PO DAILY
cyanocobalamin (vitamin B-12) 2,500 mcg Tablet
2,500 mcg PO DAILY
Citracal
650 mg PO DAILY
CoQ-10
300 mg PO DAILY
[place]-3 Krill Oil
750 mg PO DAILY
aspirin 81 mg tablet,delayed release (DR/EC)
81 mg PO DAILY Qty: 30 0RF
saw palmetto 160 mg Capsule
640 mg PO DAILY
metoprolol succinate 25 mg Tablet Extended Release 24 Hr
12.5 mg PO QPM
Praluent Pen 75 mg/mL Pen Injector
75 mg SC Q2W
fenofibrate
145 mg PO QPM
lutein
75 mg PO DAILY
clopidogrel [Plavix] 75 mg Tablet
75 mg PO QPM
fluticasone propionate 50 mcg/actuation Ora,Suspension
2 spray INTRANASAL DAILY
Discharge Orders:
Discharge Patient (As Directed); Ordered 10/29/23
Ordered By: Anastasia Reynoso
Discharge Date and Time
Discharge Date/Time: 10/29/23 14:46
Print Language: MALTESE
== END 2023-10-29 14:46 | disposition home or self-care (01) | DRG 36 ==
LOC: ICU 05:52
PROVIDERS: Nurse Practitioner; ADMITTING PHYSICIAN Surgery Vascular Surgery; CONSULT PHYSICIAN Internal Medicine Critical Care Medicine; FAMILY PHYSICIAN Physician Assistant Medical
PROC: B3191ZZ Fluoroscopy of Right External Carotid Artery using Low Osmolar Contrast (ICD-10-PCS; 2023-10-28)
PROC: B3131ZZ Fluoroscopy of Right Common Carotid Artery using Low Osmolar Contrast (ICD-10-PCS; 2023-10-28)
PROC: 037K34Z Dilation of Right Internal Carotid Artery with Drug-eluting Intraluminal Device, Percutaneous Approach (ICD-10-PCS; 2023-10-28)
PROC: B3161ZZ Fluoroscopy of Right Internal Carotid Artery using Low Osmolar Contrast (ICD-10-PCS; 2023-10-28)
DX: I65.21 Occlusion and stenosis of right carotid artery (principal); I10 Essential (primary) hypertension; E78.5 Hyperlipidemia, unspecified; N20.0 Calculus of kidney; J47.9 Bronchiectasis, uncomplicated; G62.9 Polyneuropathy, unspecified; N40.0 Benign prostatic hyperplasia without lower urinary tract symptoms; K58.9 Irritable bowel syndrome, unspecified; M19.90 Unspecified osteoarthritis, unspecified site; Z79.82 Long term (current) use of aspirin; Z79.899 Other long term (current) drug therapy; Z87.891 Personal history of nicotine dependence
CPT/HCPCS: 36415; 37215; 71045; 71046; 76937; 80048; 80053; 83735; 84100; 85025; 85027; 85610; 85730; 87070; 93005; C1725; C1769; C1876; C1884; C1894; Q9967

== ENCOUNTER → 2023-12-10 13:03 | Outpatient (REF) | payer MEDICARE, OTHER, SELFPAY | LOC: RAD 13:03 | PROVIDERS: ATTENDING PHYSICIAN Registered Nurse; FAMILY PHYSICIAN Physician Assistant Medical | DX: I65.23 Occlusion and stenosis of bilateral carotid arteries (principal) | CPT/HCPCS: 93880 ==

== ENCOUNTER → 2024-01-09 09:07 | Outpatient (REF) | payer MEDICARE, OTHER, SELFPAY ==
[2024-01-09 10:36] LABS: Microalbumin, Random Urine <0.6 mg/dl (0.6-1.7)
[2024-01-09 10:39] LABS: % Basophils 0.3 % (0-2); % Immature Granulocytes 0.3 % (0-0.5); % Lymphocytes 24.3 % (20.5-51.1); % Monocytes 7.6 % (1.7-9.3); % Neutrophils 65.5 % (42.2-75.2); Absolute Eosinophils 0.1 10^3/uL (0-0.7); Absolute Lymphocytes 1.5 10^3/uL (1.2-3.4); Absolute Monocytes 0.5 10^3/uL (0.1-0.6); Absolute Neutrophils 3.9 10^3/uL (1.4-6.5); Hematocrit 43.4 % (39.0-52.0); Mean Corp Hgb Conc. 34.6 g/dL (33.0-37.0); Mean Corpuscular Hgb 31.9 pg (27.0-31.0); Mean Corpuscular Volume 92.3 fL (80.0-94.0); Mean Platelet Volume 11.2 fL (7.4-10.4); Nucleated Red Blood Cells % 0 % (-); Platelet Count 167 10^3/uL (130-400)
[2024-01-09 11:05] LABS: ALT (SGPT) 42 U/L (0-50); AST (SGOT) 47 U/L (17-59); Albumin 4.7 g/dl (3.5-5.0); Alkaline Phosphatase 67 U/L (38-126); Blood Urea Nitrogen 19 mg/dl (9-20); Calcium 9.7 mg/dl (8.4-10.2); Carbon Dioxide 25 mmol/L (22-30); Chloride 106 mmol/L (98-107); Glucose 100 mg/dl (70-99); Potassium 4.5 mmol/L (3.5-5.1); Sodium 142 mmol/L (135-145); Total Bilirubin 0.9 mg/dl (0.2-1.3); Total Protein 7.5 g/dl (6.3-8.2); eGFR > 60.00
[2024-01-09 11:12] LABS: Glycohemoglobin (HgbA1c) 5.7 % (4.0-5.6)
== END ==
LOC: REG 09:07
PROVIDERS: ATTENDING PHYSICIAN Physician Assistant Medical
DX: E11.59 Type 2 diabetes mellitus with other circulatory complications (principal); R53.83 Other fatigue; Z79.899 Other long term (current) drug therapy
CPT/HCPCS: 36415; 80053; 82043; 82570; 83036; 85025

== ENCOUNTER → 2024-03-05 09:42 | Outpatient (REF) | payer MEDICARE, OTHER, SELFPAY ==
[2024-03-05 10:46] LABS: HDL Cholesterol 47 mg/dl; LDL Cholesterol, Calculated 37 mg/dl; Total Cholesterol 115 mg/dl (50-199); Triglyceride 156 mg/dl (10-149); Very Low Density Lipoprotein 31 mg/dl (0-30)
== END ==
LOC: REG 09:42
PROVIDERS: ATTENDING PHYSICIAN Internal Medicine Cardiovascular Disease
DX: E78.2 Mixed hyperlipidemia (principal)
CPT/HCPCS: 36415; 80061

== ENCOUNTER → 2024-05-31 14:42 | Outpatient (REF) | payer MEDICARE, OTHER, SELFPAY | LOC: DHVS 14:42 | PROVIDERS: ATTENDING PHYSICIAN Surgery Vascular Surgery; FAMILY PHYSICIAN Physician Assistant Medical | DX: I65.23 Occlusion and stenosis of bilateral carotid arteries (principal) | CPT/HCPCS: 93880 ==

== ENCOUNTER → 2024-08-05 10:38 | Outpatient (REF) | payer MEDICARE, OTHER, SELFPAY ==
[2024-08-05 11:15] LABS: ALT (SGPT) 54 U/L (0-50); AST (SGOT) 53 U/L (17-59); Albumin 4.9 g/dl (3.5-5.0); Alkaline Phosphatase 62 U/L (38-126); Blood Urea Nitrogen 18 mg/dl (9-20); Calcium 9.6 mg/dl (8.4-10.2); Carbon Dioxide 24 mmol/L (22-30); Chloride 104 mmol/L (98-107); Glucose 106 mg/dl (70-99); Potassium 4.2 mmol/L (3.5-5.1); Sodium 137 mmol/L (135-145); Total Protein 7.7 g/dl (6.3-8.2); eGFR > 60.00
[2024-08-05 11:47] LABS: Microalbumin, Random Urine 0.9 mg/dl (0.6-1.7); Microalbumin/creatinine Ratio 5.5 mg/g
[2024-08-05 13:07] LABS: Glycohemoglobin (HgbA1c) 5.7 % (4.0-5.6)
== END ==
LOC: REG 10:38
PROVIDERS: ATTENDING PHYSICIAN Physician Assistant Medical
DX: E11.59 Type 2 diabetes mellitus with other circulatory complications (principal); E78.2 Mixed hyperlipidemia
CPT/HCPCS: 36415; 80053; 82043; 82570; 83036

== ENCOUNTER → 2024-09-24 14:41 | Outpatient (REF) | payer MEDICARE, OTHER, SELFPAY | LOC: RAD 14:41 | PROVIDERS: ATTENDING PHYSICIAN Physician Assistant Medical | DX: R10.9 Unspecified abdominal pain (principal) | CPT/HCPCS: 76770 ==

== ENCOUNTER → 2024-12-08 12:54 | Outpatient (REF) | payer MEDICARE, OTHER, SELFPAY | LOC: RAD 12:54 | PROVIDERS: ATTENDING PHYSICIAN Surgery Vascular Surgery; FAMILY PHYSICIAN Physician Assistant Medical | DX: I65.23 Occlusion and stenosis of bilateral carotid arteries (principal) | CPT/HCPCS: 93880 ==

== ENCOUNTER → 2025-05-20 07:06 | Outpatient (REF) | payer MEDICARE, OTHER, SELFPAY ==
[2025-05-20 08:05] LABS: Hematocrit 45.9 % (39.0-52.0); Hemoglobin 15.7 g/dL (13.0-18.0); Mean Corp Hgb Conc. 34.2 g/dL (33.0-37.0); Mean Corpuscular Volume 94.1 fL (80.0-94.0); Nucleated Red Blood Cells % 0 % (-); Platelet Count 167 10^3/uL (130-400); Red Cell Dist. Width 12.6 % (11.5-14.5)
[2025-05-20 08:26] LABS: Glycohemoglobin (HgbA1c) 5.6 % (4.0-5.9)
[2025-05-20 08:54] LABS: ALT (SGPT) 35 U/L (0-50); AST (SGOT) 40 U/L (17-59); Albumin 4.8 g/dl (3.5-5.0); Alkaline Phosphatase 45 U/L (38-126); Blood Urea Nitrogen 16 mg/dl (9-20); Calcium 9.9 mg/dl (8.4-10.2); Carbon Dioxide 25 mmol/L (22-30); Chloride 103 mmol/L (98-107); Glucose 91 mg/dl (70-99); HDL Cholesterol 43 mg/dl; LDL Cholesterol, Calculated 44 mg/dl; Potassium 4.5 mmol/L (3.5-5.1); Sodium 140 mmol/L (135-145); Total Protein 7.8 g/dl (6.3-8.2); Very Low Density Lipoprotein 33 mg/dl (0-30); eGFR > 60.00
== END ==
LOC: REG 07:06
PROVIDERS: ATTENDING PHYSICIAN Internal Medicine Cardiovascular Disease; FAMILY PHYSICIAN Physician Assistant Medical
DX: E78.2 Mixed hyperlipidemia (principal); E11.59 Type 2 diabetes mellitus with other circulatory complications
CPT/HCPCS: 36415; 80053; 80061; 83036; 85025

== ENCOUNTER 2025-05-26 06:40 | Emergency (ER) | payer MEDICARE, OTHER, SELFPAY ==
[2025-05-26 06:44] VITALS: BP 136/78
--- NOTE | 2025-05-26 07:10 | ED.GENMED ---
History of Present Illness
General
Chief Complaint: Flank Pain
Source: patient
Exam Limitations: none
Time Seen by Provider: 05/26/25 06:59
History of Present Illness
History of Present Illness:
See MDM
Past History
Past History
ED Past Medical History: Hypercholesterolemia and Other (Kidney stones)
ED Past Surgical History: Orthopedic
Social History
Tobacco: Former smoker
Alcohol: None
Drug: None
Personal:
Living: with family
Phy Exam
Physical Exam
Physical Exam:
See MDM
Course
Orders/Labs/Results
Orders:
Orders
05/26/25 07:05
Urinalysis Reflex To Culture Urgent
Date Specimen was Collected: 05/26/25
Time Specimen was Collected: 06:50
Urine Microscopic Reflex Cult Urgent
05/26/25 07:09
CT Abd/pel Without Iv Or Oral Urgent
Comment:
Reason For Exam: Left flank pain
Ketorolac [Toradol] 30 mg IM NOW STA
Abnormal Lab Results
05/26/25
07:05
Ur Occult Blood Reflex 4+ A
(Negative)
Urine RBC 26-30 A /HPF
(0-2)
Urine Bacteria (Reflex) Few A
(Negative)
Urine Albumin (Reflex) 1+ A
(Neg - Trace)
Vital Signs
Initial and Last Documented VS:
Initial Vital Signs
Temp Pulse Resp BP Pulse Ox
98.9 F 85 16 136/78 96
05/26/25 06:44 05/26/25 06:44 05/26/25 06:44 05/26/25 06:44 05/26/25 06:44
Last Documented Vital Signs
Temp Pulse Resp BP Pulse Ox
98.9 F 85 16 136/78 96
05/26/25 06:44 05/26/25 06:44 05/26/25 06:44 05/26/25 06:44 05/26/25 07:11
MDM/Problems Addressed
Differential Diagnosis Includes:
Note:
CHIEF COMPLAINT(S)
Left flank pain and hematuria (rust-colored urine).
HISTORY OF PRESENT ILLNESS
The patient is a 69-year-old male with a suspected kidney stone presenting with left flank pain and discolored urine. The patient reports the onset of symptoms a few days ago, likening the experience to previous occurrences of kidney stones. Current
symptoms include flank pain that radiates, described as coming in waves, and is accompanied by rust-colored urine. Patient gave a urine sample which is pale yellow. Pain severity is stated at level 2 at present, although it was more intense an
hour earlier. The patient has previously been prescribed tamsulosin (Flomax) and reports familiarity with other medications such as oxycodone but prefers to avoid narcotics. Instead, the patient accepts a shot of ketorolac (Toradol) for pain
management. The patient is also worried about decreased urine flow but denies nausea and prefers to manage pain through movement and activity. A CT scan is planned to evaluate for kidney stones and assess for infection.
PHYSICAL EXAM
General: Alert, no acute distress.
Skin: Warm, dry.
Head: Normocephalic, atraumatic
Neck: Appears supple, trachea midline.
Eyes, Ears, Nose, Mouth, and Throat: Moist mucous membranes
Cardiovascular: No signs of cyanosis
Respiratory: Respirations are non-labored.
Abdomen: Non-distended. Soft and nontender. No CVA tenderness noted
Musculoskeletal: No deformities
Neurological: No focal neurological deficit observed.
Psychiatric: Cooperative, appropriate mood and affect.
PLAN
- Perform a CT scan to assess for kidney stones and rule out infection.
- Administer an injection of ketorolac for pain management.
- Monitor for any further symptoms, particularly significant changes in urine production or new pain patterns.
DIFFERENTIAL DIAGNOSIS
The Differential Diagnosis includes, in no particular order and is not limited to:
- Nephrolithiasis (Kidney Stones)
- Urinary Tract Infection
- Pyelonephritis
- Renal Colic
- Hematuria due to other renal causes
- Extrarenal causes of abdominal pain
- Bladder or other urinary tract infection
- Acute prostatitis
- Ureteral obstruction
SUMMARY OF ENCOUNTER
The patient presented to the emergency department with suspected nephrolithiasis, indicated by left flank pain and hematuria. Given the patient�s history of kidney stones and the wavelength nature of the pain, along with difficulty in urination, a
CT scan was advised to confirm the presence of stones and dismiss infection complications. The patient�s pain was managed using an injection of ketorolac, favoring this medication over narcotics like oxycodone due to personal preference and past
experiences.
MEDICAL DECISION MAKING
-Complexity of Data Reviewed: Chronic conditions affecting care suspected nephrolithiasis.
-Data:
Category 1
Clinical evaluation planned with CT scan for further investigation.
-Risk:
Consideration of potential kidney stones and risk of urinary obstruction, managed currently with non-narcotic anti-inflammatory medication and imaging study planned.
DIAGNOSIS
Possible Nephrolithiasis (ICD-10: N20.0)
Hematuria (ICD-10: R31.9)
SUMMARY OF ENCOUNTER
The patient initially presented with left flank pain. A CT scan confirmed an 8mm stone in the distal left ureter. After administration of ketorolac, all symptoms resolved, and the patient reported feeling much better and comfortable to go home. A
urinalysis was negative for any evidence of infection. A discussion occurred with the patient regarding outpatient urologic care, and he was provided with a strainer for his urine. The patient acknowledged the diagnosis of nephrolithiasis and an
incidental finding on the CT scan regarding his right kidney, which mentioned the possibility of a complex cyst versus renal cell carcinoma. Further outpatient imaging for follow-up was discussed. Additionally, the known infrarenal abdominal aortic
aneurysm was discussed, and follow-up for this condition is scheduled for this week.
PLAN
Perform outpatient follow-up with urology for the 8mm distal ureteral stone and to address the incidental renal findings. Continue the use of tamsulosin as prescribed and use the provided urine strainer to catch any passed stones.
PATIENT EDUCATION AND COUNSELING
The patient was educated on the current findings and the importance of following up with a urologist. He was informed about using the urine strainer to catch stones and the necessity of adhering to prescribed medications. The possibility of a
complex cyst versus renal cell carcinoma was explained alongside the need for further imaging. The patient was already informed about an abdominal aortic aneurysm and has established follow-up for that condition.
FOLLOW-UP INSTRUCTIONS
The patient was advised to follow up with a urologist for further evaluation of the kidney stone and potential right kidney issues and advised to continue with the planned follow-up for the abdominal aortic aneurysm this week.
MEDICATION RECONCILIATION
Patient is advised to continue taking tamsulosin as prescribed. Ketorolac was administered during the visit for pain management.
MEDICAL DECISION MAKING
-Complexity of Data Reviewed: Chronic conditions affecting care include nephrolithiasis. Differential diagnosis included nephrolithiasis, urinary tract infection, pyelonephritis, renal colic, hematuria due to other renal causes, extrarenal causes of
abdominal pain, bladder or other urinary tract infection, acute prostatitis, and ureteral obstruction.
-Data:
Category 1
Clinical information was obtained from the CT scan and urinalysis results. The CT confirmed the presence of an 8mm stone in the left ureter with an incidental finding on the right kidney, indicating a possibility of a complex cyst versus renal cell
carcinoma.
-Risk: Consideration of Admission/Observation: Escalation of care including admission/observation was considered given the complexity and risk of the patients presenting complaint, exam findings, and/or their underlying comorbidities. However,
ultimately, I feel the patient is safe for outpatient management with close follow-up. Reasoning: Work-up reassuring, does not reveal any acute life/organ-threatening processes, patients symptoms well controlled upon reevaluation, reexamination is
reassuring, vitals are stable, patient agreeable with discharge, reliable for follow-up.
DIAGNOSIS
1. Nephrolithiasis (ICD-10: N20.0)
2. Hematuria (ICD-10: R31.9)
3. Complex renal cyst vs. possible renal cell carcinoma (ICD-10: N28.1)
*Pulse Oximetry
SaO2: 96
Oxygen Mode of Delivery: Room air
Patient hypoxic: no
*Critical Care Note
Total Time (30-74mins, 75-104mins- exclusive of procedures): Not Applicable
ED Attending Note
-
Portions of this chart may have been created with voice recognition software.� Occasional wrong word or��sound alike� substitutions may have occurred due to the inherent limitations of voice recognition software.
Discharge Plan
Departure
Patient Disposition: Home (Routine Discharge)
Date of Disposition: 05/26/25
Time of Disposition: 08:30
Patient with high blood pressure during this ER visit?: No
Discharge Problem:
Kidney stone on left side
Instructions: Kidney Stones (DC)
Prescriptions:
New
diclofenac sodium 75 mg tablet,delayed release (DR/EC)
75 mg PO BID PRN (Reason: Pain) Qty: 20 0RF
ondansetron 4 mg Tablet,Disintegrating
4 mg PO BIDPRN PRN (Reason: nausea/vomiting) Qty: 10 0RF
oxycodone 5 mg tablet
5 mg PO Q8H PRN (Reason: Pain) Qty: 10 0RF
No Action
ascorbic acid (vitamin C) [Vitamin C] 1,000 mg Tablet
1,000 mg PO DAILY
fexofenadine 180 mg Tablet
180 mg PO HS
losartan 25 mg Tablet
50 mg PO HS
lysine [L-Lysine] 500 mg Tablet
500 mg PO DAILY
Visbiome 112.5 billion cell Capsule
1 cap PO DAILY
cholecalciferol (vitamin D3) 50 mcg (2,000 unit) Tablet
50 mcg PO DAILY
vitamin E (dl, acetate) 180 mg (400 unit) Capsule
180 mg PO DAILY
IBgard 90 mg Capsule,Delayed,Extend.Release
180 mg PO DAILY
cyanocobalamin (vitamin B-12) 2,500 mcg Tablet
2,500 mcg PO DAILY
Citracal
650 mg PO DAILY
CoQ-10
300 mg PO DAILY
[place]-3 Krill Oil
750 mg PO DAILY
aspirin 81 mg tablet,delayed release (DR/EC)
81 mg PO DAILY Qty: 30 0RF
saw palmetto 160 mg Capsule
640 mg PO DAILY
metoprolol succinate 25 mg Tablet Extended Release 24 Hr
12.5 mg PO QPM
Praluent Pen 75 mg/mL Pen Injector
75 mg SC Q2W
fenofibrate
145 mg PO QPM
lutein
75 mg PO DAILY
clopidogrel [Plavix] 75 mg Tablet
75 mg PO QPM
fluticasone propionate 50 mcg/actuation Cut Off,Suspension
2 spray INTRANASAL DAILY
Referrals:
Justice Atwood MD [Active, Urology]
Suzanna Velazquez PA-C [Family Provider, Internal Medicine]
Activity Restrictions/Additional Instructions:
Please return for any worsening symptoms.
You may return at any time if you have further concerns.
Please follow up with your doctor at the first available appointment, preferably this week. Please discuss the incidental findings on your CT scan, especially in regards to the kidney.
Please make an appointment to see the urologist.
Please continue to take the Flomax as prescribed.
Thank you for choosing [facility].
Interventions
Interventions:
*Risk Screen - Suicide Last Done: 05/26/25 06:44
*Neglect/Abuse Screening Last Done: 05/26/25 06:44
*ED- Fall Risk Assessment Last Done: 05/26/25 06:44
*ED COVID-19 Vaccine History Last Done: 05/26/25 06:44
*ED Influenza Vaccine History Last Done: 05/26/25 06:44
Discharge Date and Time
Print Language: GREEK
[2025-05-26] MEDS: TORADOL 30 MG IM (07:14)
[2025-05-26 07:59] LABS: Urine Character Clear (Clear)
[2025-05-26 08:14] LABS: Urine Red Blood Cell 26-30 /HPF (0-2)
== END 2025-05-26 08:35 | disposition home or self-care (01) ==
LOC: EMR 06:40
PROVIDERS: EMERGENCY PHYSICIAN Student in an Organized Health Care Education/Training Program; FAMILY PHYSICIAN Physician Assistant Medical
DX: N13.2 Hydronephrosis with renal and ureteral calculous obstruction (principal); I71.43 Infrarenal abdominal aortic aneurysm, without rupture; E78.00 Pure hypercholesterolemia, unspecified; Z87.891 Personal history of nicotine dependence; Z87.442 Personal history of urinary calculi
CPT/HCPCS: 99284; 96372; 74176; 81003; 81015

== ENCOUNTER → 2025-05-30 06:53 | Outpatient (REF) | payer MEDICARE, OTHER, SELFPAY | LOC: RAD 06:53 | PROVIDERS: ATTENDING PHYSICIAN Registered Nurse; FAMILY PHYSICIAN Physician Assistant Medical | DX: I71.40 Abdominal aortic aneurysm, without rupture, unspecified (principal); I65.23 Occlusion and stenosis of bilateral carotid arteries | CPT/HCPCS: 76770; 93880 ==